=== PATIENT | female | born 1955 | race Caucasian/White ===

== ENCOUNTER 2021-04-15 14:40 | Emergency (ER) | payer OTHER, SELFPAY ==
[2021-04-15 14:52] VITALS: BP 176/62; PULSE 61; RESP 18; TEMP 37.1; O2SAT 98; BMI 26.5
--- NOTE | 2021-04-15 16:08 | ED_ITS ---
HPI - Wound/Laceration General Chief Complaint: Wound/Laceration Stated Complaint: l middle finger laceration Time Seen by Provider: 04/15/21 16:07 Source: patient Mode of arrival: ambulatory Limitations: no limitations History of Present Illness HPI narrative: 65-year-old female no known medical history presents the emergency department with a laceration to the left middle finger status post cutting it while opening a package with scissors. She tells me this was accidental. She denies numbness and tingling. She denies SI and HI. She is not up-to-date on tetanus shot. She does not have a foreign body sensation. Location: other (left middle finger ) Body four view annotation: 1. laceration Place: home Patient tetanus UTD: Yes Context: accidental Associated symptoms: none Related Data Allergies Allergy/AdvReac Type Severity Reaction Status Date / Time No Known Allergies Allergy Verified 04/15/21 14:55 Review of Systems Review of Systems: Constitutional : No Fever, No Chills, Cardiovascular : No Chest Pain, No SOB Respiratory : No Dyspnea Gastrointestinal : No abdominal pain Musculoskeletal : No Joint Swelling Skin : No rash, positive skin laceration Neuro : No Weakness, No Numbness Psych : No SI/HI Yes all other systems are reviewed and are negative [facility] Past Medical History Attestation statement: The following information was validated with the patient. Source: old records reviewed and nursing notes reviewed Medical History Hypertension Social History Social History Advance Directives: No Advance Directives Information Provided: No Physical Exam Vital Signs: Vital Signs: Last Vital Signs Temp 98.7 F 04/15/21 14:52 Pulse 61 04/15/21 14:52 Resp 18 04/15/21 14:52 BP 176/62 H 04/15/21 14:52 Pulse Ox 98 04/15/21 14:52 BMI result Body Mass Index 26.5 VSS Appearance: Alert.? Oriented X3.? No acute distress.? Head: Normocephalic, atraumatic, no step-offs or deformities Eyes: Pupils equal, round and reactive to light.? ENT: Pharynx normal.? CVS: Normal heart rate and rhythm.? Pulses normal.? Respiratory: No respiratory distress.? Breath sounds normal.? Abdomen: Soft and nontender.? Skin: Skin warm and dry.? Normal skin color.? Normal skin turgor.? Extremities: No lower extremity edema.? No calf ttp. 5/5 strength to bilateral upper and lower extremities + 2 cm laceration to the palmar aspect of left mi ddle finger below mcp joint. Neuro: Oriented X 3.? No motor deficit.? No sensory deficit. CN 2-12 intact Course Reevaluation(s) Reevaluation #1: Successfully suture the area using 4-0 nylon sutures. X2. Patient tolerated procedure well. Patient is not a diabetic, area was irrigated well. No need for antibiotics at this time. Educated on worrisome signs and symptoms outlined these on her discharge. Comfortable discharge home. Time: 16:17 MDM - Wound/Laceration MDM Narrative Medical decision making narrative: [id number] 65 yo female presents w/ lac to left middle finger, accidental. Not UTD on tetanus. PE laceration to left middle finger Plan- suture Medical Records Attestation: I reviewed the patient's medical records. Lab Data Attestation: I reviewed the patient's lab results. Procedures Laceration Laceration 1: Site: hand Side (If applicable): left Size (cm): 2 Description: linear Depth: simple, single layer Local Anesthetic: lidocaine 2% Amount of anesthesia used (mL): 5 Pre-repair: wound explored, irrigated extensively and deep structures intact Skin layer closed with: nylon Size (cm): 4-0 Number of sutures: 2 Technique: simple, interrupted Critical Care Time Critical Care Time Critical Care Time: No Discharge Plan Discharge Clinical Impression: Laceration Patient Disposition: Home, Self-Care Instructions: Laceration (ED), Finger Laceration (ED), Stitches Removal (ED) Additional Instructions: Take your medications as prescribed. If you were prescribed antibiotics today, it is important that you take your medication to their entirety, do not skip any doses, do not finish them early. Follow-up with your primary care provider this week. Return to the emergency department with new or worsening symptoms. Such as loss of range of motion to that digit, redness, fevers, chills, discharge from the area, severe pain. Return in 7-10 days for suture removal. In case of emergency call 911 Referrals: PhysicianOlivia [Primary Care Provider] - 2 days
[2021-04-15] MEDS: Lidocaine HCl 2 % MPF 5 ML VIAL SUBCUT (16:21)
[2021-04-15] MEDS: Diphth,Pertus(ACell),Tet Adult 0.5 ML SYRINGE IM (16:36)
== END 2021-04-15 16:49 | disposition home or self-care (01) ==
PROVIDERS: Emergency Provider Emergency Medicine
DX: S61.213A Laceration without foreign body of left middle finger without damage to nail, initial encounter (principal); W27.2XXA Contact with scissors, initial encounter; I10 Essential (primary) hypertension; Y93.89 Activity, other specified; Y92.019 Unspecified place in single-family (private) house as the place of occurrence of the external cause; Y99.9 Unspecified external cause status
CPT/HCPCS: 12001; 90471; 90715; 99283; 99284